=== PATIENT | female | born 1990 | race Caucasian/White ===

== ENCOUNTER 2024-05-15 07:56 | Inpatient (IN) | payer OTHER ==
[2024-05-15] MEDS: LACTATED RINGERS SOLUTION 1000 ML INFUS.BAG IV ONE ×2 (08:44→10:02)
[2024-05-15] MEDS: morphine CARPU-JECT 2 MG/1 ML DISP.SYRIN IVPUSH ONE ×3 (08:45→13:21)
[2024-05-15] MEDS ORDERED: diazePAM CARPU-JECT 10 MG/2 ML DISP.SYRIN ONE (08:48)
[2024-05-15] MEDS ORDERED: ACETAMINOPHEN INJECTION 100 ML IVPB ONE (08:49)
[2024-05-15] MEDS ORDERED: morphine SULFATE 4 MG/ML VIAL ONE ×2 (08:49→10:03)
[2024-05-15] MEDS ORDERED: FAMOTIDINE 20 MG/50 ML IVPB 20 MG/50 ML MG IVPB ONE (08:50)
[2024-05-15] MEDS ORDERED: ONDANSETRON 4 MG/2 ML VIAL ONE (08:50)
[2024-05-15] MEDS: diazePAM CARPU-JECT 10 MG/2 ML DISP.SYRIN IVPUSH ONE (08:52)
[2024-05-15] MEDS: ONDANSETRON 4 MG/2 ML VIAL IVPUSH ONE (08:54)
[2024-05-15] MEDS: ACETAMINOPHEN 1000 MG/100 ML BAG IVPB ONE (08:55)
[2024-05-15 08:57] LABS: BASO % 0.2 % (0-2.0); HEMATOCRIT 45.6 % (32.4-45.2); HEMOGLOBIN 15.5 GM/dL (10.7-15.3); INR 0.88 (0.83-1.09); LYMPH % 13.8 % (8-40); MCH 33.8 pg (25.7-33.7); MEAN CELL VOLUME 99.3 fl (80-96); MEAN PLT VOLUME 8.2 fl (7.5-11.1); MONO % 6.3 % (3.8-10.2); NEUT % 79.7 % (42.8-82.8); PLATELET COUNT 136 10^3/uL (134-434); RBC 4.59 M/mm3 (3.60-5.2); RDW 12.6 % (11.6-15.6); WHITE BLOOD COUNT 5.7 K/mm3 (4.0-10.0)
[2024-05-15 09:00] LABS: ACTIVATED PTT 31.9 SECONDS (25.2-36.5)
[2024-05-15] MEDS: FAMOTIDINE 20 MG/50 ML IVPB 20 MG/50 ML MG IVPB ONE (09:00)
[2024-05-15 09:14] LABS: CALCIUM 10.2 mg/dL (8.5-10.1)
[2024-05-15 09:15] LABS: ALBUMIN 5.1 g/dl (3.4-5.0); BLOOD UREA NITROGEN 12.8 mg/dL (7-18); MAGNESIUM 2.5 mg/dL (1.8-2.4)
[2024-05-15 09:18] LABS: CREATININE 0.9 mg/dL (0.55-1.3); PHOSPHOROUS 1.6 mg/dL (2.5-4.9)
[2024-05-15 09:20] LABS: BILIRUBIN,TOTAL 1.4 mg/dL (0.2-1); TOT PROT 9.8 g/dl (6.4-8.2)
[2024-05-15] MEDS ORDERED: SODIUM PHOSPHATE - 0 MM in DEXTROSE 5%-WATER - 250 ML IVPB ONE (09:42)
[2024-05-15 09:48] LABS: VENOUS BASE EXCESS -6.4 mmol/L (-2-2); VENOUS O2 SATURATION 50.9 % (70-80); VENOUS PH 7.349 (7.310-7.410)
[2024-05-15 10:03] LABS: BILIRUBIN,DIRECT 0.3 mg/dL (0.0-0.2)
[2024-05-15] MEDS: morphine CARPU-JECT 4 MG/1 ML DISP.SYRIN IVPUSH ONE (10:05)
[2024-05-15] MEDS ORDERED: KETOROLAC TROMETHAMINE 15 MG/ML VIAL ONE ×2 (10:07→14:37)
[2024-05-15] MEDS: KETOROLAC TROMETHAMINE 15 MG/ML VIAL IVPUSH ONE (10:24)
[2024-05-15] MEDS: FOLIC ACID INJECTION - 1 MG, THIAMINE HCL 100 MG, MULTIVIT INJECTION ADULT 10 ML in SOD... IVPB ONE (10:24)
[2024-05-15] MEDS: FOLIC ACID 5 MG/1 ML SQ ONE (10:26)
[2024-05-15] MEDS: THIAMINE HCL 200 MG/2 ML VIAL IVPB ONE (10:26)
[2024-05-15 12:12] LABS: POTASSIUM 3.7 mmol/L (3.5-5.1)
[2024-05-15 12:14] LABS: BLOOD UREA NITROGEN 10.1 mg/dL (7-18)
[2024-05-15 12:17] LABS: CREATININE 0.6 mg/dL (0.55-1.3)
[2024-05-15 12:21] LABS: CALCIUM 8.6 mg/dL (8.5-10.1)
[2024-05-15] MEDS ORDERED: LORazepam 1 MG TABLET PO PRN (13:03)
[2024-05-15] MEDS ORDERED: ONDANSETRON 4 MG/2 ML VIAL IVPUSH PRN (13:10)
[2024-05-15] MEDS ORDERED: MORPHINE SULFATE 2 MG/ML SYRINGE ONE (13:17)
[2024-05-15] MEDS: KETOROLAC TROMETHAMINE 15 MG/ML VIAL IVPUSH PRN (14:44)
[2024-05-15] MEDS: ACETAMINOPHEN 500 MG TABLET (FP) PO PRN (17:30)
[2024-05-15] MEDS ORDERED: ACETAMINOPHEN 500 MG TABLET (FP) ONE (17:38)
[2024-05-15] MEDS: LORazepam 2 MG/ML SDV VIAL IVPUSH PRN (18:21)
[2024-05-15] MEDS: LACTATED RINGERS SOLUTION 1,000 ML/1,000 ML INFUS.BAG IV SCH (18:47)
[2024-05-15] MEDS: THIAMINE 100 MG TABLET PO SCH (21:19)
[2024-05-15] MEDS: HEPARIN NA (PORCINE) 5,000 UNITS/ML 1ML VIAL SQ SCH (21:19)
[2024-05-15] MEDS: LORazepam 1 MG TABLET PO SCH (21:19)
[2024-05-16] MEDS: SODIUM PHOSPHATE - 30 MM in DEXTROSE 5%-WATER - 500 ML IVPB ONE (07:13)
[2024-05-16 09:24] LABS: BASO % 0.4 % (0-2.0); EOS % 0.3 % (0-4.5); HEMOGLOBIN 12.4 GM/dL (10.7-15.3); LYMPH % 30.5 % (8-40); MCH 33.8 pg (25.7-33.7); MCHC 34.5 g/dl (32.0-36.0); MEAN CELL VOLUME 97.9 fl (80-96); MEAN PLT VOLUME 8.5 fl (7.5-11.1); MONO % 6.3 % (3.8-10.2); NEUT % 62.5 % (42.8-82.8); PLATELET COUNT 105 10^3/uL (134-434); RBC 3.68 M/mm3 (3.60-5.2); RDW 12.9 % (11.6-15.6); WHITE BLOOD COUNT 3.9 K/mm3 (4.0-10.0)
[2024-05-16 09:30] LABS: BILIRUBIN,DIRECT 0.3 mg/dL (0.0-0.2)
[2024-05-16 09:40] LABS: ANION GAP 9 mmol/L (4-13); BLOOD UREA NITROGEN 5.2 mg/dL (7-18); CALCIUM 8.7 mg/dL (8.5-10.1); CHLORIDE 96 mmol/L (98-107); CO2 27 mmol/L (21-32); CREATININE 0.5 mg/dL (0.55-1.3); GLUCOSE,RANDOM 125 mg/dL (74-106); POTASSIUM 2.9 mmol/L (3.5-5.1); SODIUM 132 mmol/L (136-145)
[2024-05-16 09:42] LABS: ALBUMIN 3.6 g/dl (3.4-5.0)
[2024-05-16] MEDS: POTASSIUM CHLORIDE TABS 20 MEQ TABLET.ER (FP) PO ONE (11:05)
[2024-05-16] MEDS: FAMOTIDINE 20 MG TABLET PO SCH (11:08)
[2024-05-16] MEDS: DEXTROSE 5%-WATER - 1,000 ML IV SCH (11:09)
[2024-05-16] MEDS: SODIUM CHLORIDE 0.9%/KCL 20 MEQ/1,000 ML INFUS.BAG IV SCH (14:19)
[2024-05-16] MEDS: cloNIDine HCL 0.1 MG TABLET PO ONE (17:02)
[2024-05-16] MEDS: DOCUSATE SODIUM 100 MG CAPSULE (FP) PO SCH (22:17)
[2024-05-16] MEDS: SENNOSIDES 8.6MG TABLET (FP) PO SCH (22:17)
[2024-05-17] MEDS ORDERED: POLYETHYLENE GLYCOL (HEALTHYLAX) 3350 17 GM PACKET PO PRN (08:00)
[2024-05-17 08:56] LABS: HEMATOCRIT 37.6 % (32.4-45.2); HEMOGLOBIN 12.8 GM/dL (10.7-15.3); MCH 33.5 pg (25.7-33.7); MEAN CELL VOLUME 98.7 fl (80-96); MEAN PLT VOLUME 8.5 fl (7.5-11.1); PLATELET COUNT 98 10^3/uL (134-434); RBC 3.81 M/mm3 (3.60-5.2); RDW 12.7 % (11.6-15.6); WHITE BLOOD COUNT 2.6 K/mm3 (4.0-10.0)
[2024-05-17] MEDS: LORazepam 1 MG TABLET PO SCH (09:17)
[2024-05-17 09:24] LABS: CHLORIDE 96 mmol/L (98-107); SODIUM 132 mmol/L (136-145)
[2024-05-17 09:36] LABS: ALBUMIN 3.3 g/dl (3.4-5.0); ANION GAP 7 mmol/L (4-13); CALCIUM 7.9 mg/dL (8.5-10.1); CO2 29 mmol/L (21-32); GLUCOSE,RANDOM 156 mg/dL (74-106); MAGNESIUM 1.5 mg/dL (1.8-2.4)
[2024-05-17 09:38] LABS: BILIRUBIN,DIRECT 0.2 mg/dL (0.0-0.2)
[2024-05-17 09:39] LABS: CREATININE 0.4 mg/dL (0.55-1.3); PHOSPHOROUS 2.1 mg/dL (2.5-4.9); SGOT/AST 97 U/L (15-37); SGPT/ALT 29 U/L (13-61)
[2024-05-17 09:40] LABS: BILIRUBIN,TOTAL 0.8 mg/dL (0.2-1); TOT PROT 6.5 g/dl (6.4-8.2)
[2024-05-17 09:42] LABS: ALK PHOS 68 U/L (45-117)
[2024-05-17] MEDS: POTASSIUM CHLORIDE ORAL LIQUID 20 MEQ/15 ML PO ONE (10:51)
[2024-05-17] MEDS: KCL 10 MEQ IVPB 10 MEQ/100 ML INFUS.BAG IVPB SCH (10:52)
[2024-05-17 13:30] VITALS: BP 113/92; PULSE 116; RESP 20; TEMP 97.9
[2024-05-17 13:33] VITALS: BMI 21.4
[2024-05-17 13:55] LABS: PHOSPHOROUS 2.3 mg/dL (2.5-4.9)
[2024-05-17] MEDS: MAGNESIUM 2GM/50ML STERILE WATER IVPB IVPB ONE (14:03)
[2024-05-17] MEDS: MULTIVITAMINS (DAILY MVI) TABLET (FP) PO SCH (14:54)
[2024-05-17] MEDS: FOLIC ACID 1 MG TABLET (FP) PO SCH (14:54)
[2024-05-17] MEDS: NAPH,MB-DB/K PH,MBDB POWDER PACKET PO ONE (14:55)
[2024-05-17 16:50] LABS: CHLORIDE 100 mmol/L (98-107); POTASSIUM 4.3 mmol/L (3.5-5.1); SODIUM 133 mmol/L (136-145)
[2024-05-17 16:52] LABS: ANION GAP 6 mmol/L (4-13); CO2 27 mmol/L (21-32); GLUCOSE,RANDOM 135 mg/dL (74-106); MAGNESIUM 2.5 mg/dL (1.8-2.4)
[2024-05-17 16:55] LABS: CREATININE 0.4 mg/dL (0.55-1.3)
[2024-05-17 16:58] LABS: BLOOD UREA NITROGEN 2.4 mg/dL (7-18); CALCIUM 9.2 mg/dL (8.5-10.1)
== END 2024-05-17 18:31 | disposition home or self-care (01) | DRG 282 ==
LOC: JER 07:56 → JERBED 12:28 → OBSVTOIN 12:59 → J7W 18:02
PROVIDERS: ADMIT Internal Medicine; ATTEND Internal Medicine
DX: K85.20 Alcohol induced acute pancreatitis without necrosis or infection (principal); R74.8 Abnormal levels of other serum enzymes; E83.39 Other disorders of phosphorus metabolism; E87.6 Hypokalemia; K59.00 Constipation, unspecified; E83.42 Hypomagnesemia; E87.1 Hypo-osmolality and hyponatremia
CPT/HCPCS: 36415; 71045-TC-FY; 74176-TC; 76705-TC; 80048; 80053; 80076; 82248; 82803; 83690; 83735; 84100; 84484; 84703; 85025; 85027; 85610; 85730; 93005; 93010; 99285-25; G0378; J0131; J1644

== ENCOUNTER 2024-08-25 20:29 | Inpatient (IN) | payer BC, OTHER ==
[2024-08-25] MEDS ORDERED: ONDANSETRON 4 MG/2 ML VIAL ONE (21:38)
[2024-08-25] MEDS ORDERED: ACETAMINOPHEN INJECTION 100 ML ONE (21:38)
[2024-08-25] MEDS: LACTATED RINGERS SOLUTION 1000 ML INFUS.BAG IV ONE (21:45)
[2024-08-25] MEDS: ONDANSETRON 4 MG/2 ML VIAL IVPUSH ONE (21:45)
[2024-08-25] MEDS: ACETAMINOPHEN 1000 MG/100 ML BAG IVPB ONE (21:45)
[2024-08-25 21:50] LABS: BASO % 0.7 % (0-2.0); EOS % 0.9 % (0-4.5); HEMATOCRIT 35.8 % (32.4-45.2); LYMPH % 36.2 % (8-40); MCH 33.5 pg (25.7-33.7); MCHC 33.6 g/dl (32.0-36.0); MEAN CELL VOLUME 99.7 fl (80-96); MEAN PLT VOLUME 7.6 fl (7.5-11.1); MONO % 8.6 % (3.8-10.2); NEUT % 53.6 % (42.8-82.8); PLATELET COUNT 465 10^3/uL (134-434); RBC 3.59 M/mm3 (3.60-5.2); RDW 14.6 % (11.6-15.6); WHITE BLOOD COUNT 5.9 K/mm3 (4.0-10.0)
[2024-08-25 21:51] LABS: PH,URINE 5.5 (5.0-8.0); URINE APPEARANCE CLEAR; URINE BILIRUBIN NEGATIVE (NEGATIVE); URINE COLOR YELLOW; URINE GLUCOSE (UA) NEGATIVE (NEGATIVE); URINE KETONE TRACE (NEGATIVE); URINE LEUK ESTERASE NEGATIVE (NEGATIVE); URINE NITRITE NEGATIVE (NEGATIVE); URINE PROTEIN NEGATIVE (NEGATIVE); URINE UROBILINOGEN 0.2 mg/dL (0.2-1.0)
[2024-08-25 22:16] LABS: POTASSIUM 3.9 mmol/L (3.5-5.1)
[2024-08-25 22:18] LABS: ALBUMIN 4.3 g/dl (3.4-5.0); CALCIUM 9.4 mg/dL (8.5-10.1)
[2024-08-25 22:19] LABS: BLOOD UREA NITROGEN 5.5 mg/dL (7-18)
[2024-08-25 22:21] LABS: CREATININE 0.7 mg/dL (0.55-1.3)
[2024-08-25 22:23] LABS: BILIRUBIN,TOTAL 0.3 mg/dL (0.2-1); TOT PROT 7.8 g/dl (6.4-8.2)
[2024-08-25] MEDS: SODIUM CHLORIDE 1,000 ML IV STA (22:52)
[2024-08-25] MEDS ORDERED: MORPHINE SULFATE 2 MG/ML SYRINGE ONE (23:16)
[2024-08-25] MEDS: morphine SULFATE 4 MG/ML VIAL IVPUSH ONE (23:20)
[2024-08-26 01:20] VITALS: BMI 20.3
[2024-08-26] MEDS ORDERED: ACETAMINOPHEN 1000 MG/100 ML BAG IVPB PRN (01:45)
[2024-08-26] MEDS: LACTATED RINGERS SOLUTION 1,000 ML/1,000 ML INFUS.BAG IV SCH ×2 (02:45→10:55)
[2024-08-26 08:32] LABS: HEMATOCRIT 31.4 % (32.4-45.2); HEMOGLOBIN 10.7 GM/dL (10.7-15.3); MCH 34.3 pg (25.7-33.7); MCHC 34.2 g/dl (32.0-36.0); MEAN CELL VOLUME 100.4 fl (80-96); PLATELET COUNT 369 10^3/uL (134-434); RBC 3.12 M/mm3 (3.60-5.2); RDW 14.6 % (11.6-15.6); WHITE BLOOD COUNT 4.2 K/mm3 (4.0-10.0)
[2024-08-26 09:04] LABS: POTASSIUM 3.9 mmol/L (3.5-5.1)
[2024-08-26 09:12] LABS: BLOOD UREA NITROGEN 3.9 mg/dL (7-18); CALCIUM 8.7 mg/dL (8.5-10.1); CREATININE 0.6 mg/dL (0.55-1.3); TOT PROT 5.8 g/dl (6.4-8.2)
[2024-08-26 09:15] LABS: PHOSPHOROUS 4.3 mg/dL (2.5-4.9)
[2024-08-26 09:17] LABS: ALBUMIN 3.2 g/dl (3.4-5.0); BILIRUBIN,TOTAL 0.3 mg/dL (0.2-1)
[2024-08-26] MEDS: THIAMINE 100 MG TABLET PO SCH (10:50)
[2024-08-26] MEDS: FOLIC ACID 1 MG TABLET (FP) PO SCH (10:50)
[2024-08-26] MEDS: MULTIVITAMINS (DAILY MVI) TABLET (FP) PO SCH (10:50)
[2024-08-26] MEDS: FLU VACCINE (FLULAVAL) PF 45 MCG/0.5 ML SYRINGE 2024-2025 IM ONE (10:54)
[2024-08-26] MEDS: ENOXAPARIN NA (PORCINE) 40 MG/0.4 ML DISP.SYRIN SQ SCH (10:55)
[2024-08-26] MEDS: ESCITALOPRAM OXALATE 10 MG TABLET PO SCH (14:07)
[2024-08-26] MEDS ORDERED: HYDROmorphone HCl 2 MG/ML VIAL IVPB PRN (15:46)
[2024-08-26 15:49] LABS: COCAINE, UR NEGATIVE (NEGATIVE); METHADONE, UR NEGATIVE (NEGATIVE); URINE AMPHETAMINES NEGATIVE (NEGATIVE)
[2024-08-26 15:51] LABS: PHENCYCLIDINE,URINE NEGATIVE (NEGATIVE)
[2024-08-26 15:56] LABS: OPIATES, URI POSITIVE (NEGATIVE); URINE BARBITURATES NEGATIVE (NEGATIVE); URINE BENZODIAZEPINES POSITIVE (NEGATIVE)
[2024-08-26] MEDS: PANTOPRAZOLE SODIUM 40 MG VIAL IVPUSH SCH (17:57)
[2024-08-26] MEDS: KETOROLAC TROMETHAMINE 15 MG/ML VIAL IVPUSH ONE (23:06)
[2024-08-27 09:23] LABS: HEMATOCRIT 34.7 % (32.4-45.2); HEMOGLOBIN 11.4 GM/dL (10.7-15.3); MCH 33.6 pg (25.7-33.7); MEAN CELL VOLUME 101.9 fl (80-96); MEAN PLT VOLUME 7.8 fl (7.5-11.1); PLATELET COUNT 441 10^3/uL (134-434); RDW 14.4 % (11.6-15.6); WHITE BLOOD COUNT 4.7 K/mm3 (4.0-10.0)
[2024-08-27 09:27] LABS: INR 0.98 (0.83-1.09); PROTHROMBIN TIME (PATIENT) 11.1 SEC (9.7-13.0)
[2024-08-27 12:41] LABS: POTASSIUM 3.9 mmol/L (3.5-5.1)
[2024-08-27 12:50] LABS: CALCIUM 9.2 mg/dL (8.5-10.1)
[2024-08-27 12:52] LABS: ALBUMIN 3.5 g/dl (3.4-5.0)
[2024-08-27 12:54] LABS: CREATININE 0.5 mg/dL (0.55-1.3)
[2024-08-27 12:55] LABS: BILIRUBIN,TOTAL 0.3 mg/dL (0.2-1)
[2024-08-27 12:56] LABS: TOT PROT 6.5 g/dl (6.4-8.2)
[2024-08-27] MEDS: KETOROLAC TROMETHAMINE 15 MG/ML VIAL IVPUSH ONE (18:20)
[2024-08-28 04:08] VITALS: RESP 18
[2024-08-28 08:19] VITALS: BP 92/69; PULSE 58; TEMP 97.7
[2024-08-28 08:53] LABS: HEMATOCRIT 32.7 % (32.4-45.2); HEMOGLOBIN 11.3 GM/dL (10.7-15.3); MCH 34.7 pg (25.7-33.7); MCHC 34.6 g/dl (32.0-36.0); MEAN CELL VOLUME 100.2 fl (80-96); MEAN PLT VOLUME 8.1 fl (7.5-11.1); PLATELET COUNT 386 10^3/uL (134-434); RBC 3.27 M/mm3 (3.60-5.2); RDW 14.8 % (11.6-15.6); WHITE BLOOD COUNT 3.9 K/mm3 (4.0-10.0)
[2024-08-28 09:51] LABS: POTASSIUM 3.9 mmol/L (3.5-5.1)
[2024-08-28 10:00] LABS: ALBUMIN 3.1 g/dl (3.4-5.0); BLOOD UREA NITROGEN 3.1 mg/dL (7-18); MAGNESIUM 1.9 mg/dL (1.8-2.4)
[2024-08-28 10:03] LABS: CREATININE 0.5 mg/dL (0.55-1.3)
[2024-08-28 10:04] LABS: BILIRUBIN,TOTAL 0.3 mg/dL (0.2-1); TOT PROT 5.8 g/dl (6.4-8.2)
[2024-08-28] MEDS ORDERED: KETOROLAC TROMETHAMINE 15 MG/ML VIAL IVPUSH PRN (10:28)
== END 2024-08-28 13:29 | disposition home or self-care (01) | DRG 440 ==
LOC: JER 20:29 → JERBED 22:43 → J8W 08-26 00:38
PROVIDERS: ADMIT Internal Medicine; ATTEND Nurse Practitioner Family
DX: K85.20 Alcohol induced acute pancreatitis without necrosis or infection (principal); K86.0 Alcohol-induced chronic pancreatitis; F10.20 Alcohol dependence, uncomplicated
CPT/HCPCS: 36415; 74170-TC; 80053; 80061; 80307; 81003; 82607; 82746; 82787; 83690; 83735; 84100; 84703; 85025; 85027; 85610; 86704; 86708; 86803; 87086; 87340; 87517; 93005; 93010; 99285-25; J0131; Q9967

== ENCOUNTER 2024-09-12 19:08 | Inpatient (IN) | payer BC ==
[2024-09-12 19:25] VITALS: BMI 18.8
[2024-09-12 20:22] LABS: BASO % 2.4 % (0-2.0); EOS % 0.7 % (0-4.5); HEMOGLOBIN 12.4 GM/dL (10.7-15.3); LYMPH % 58.9 % (8-40); MCH 32.4 pg (25.7-33.7); MCHC 33.6 g/dl (32.0-36.0); MEAN CELL VOLUME 96.3 fl (80-96); MEAN PLT VOLUME 8.8 fl (7.5-11.1); MONO % 5.4 % (3.8-10.2); NEUT % 32.6 % (42.8-82.8); PLATELET COUNT 104 10^3/uL (134-434); RBC 3.84 M/mm3 (3.60-5.2); RDW 13.5 % (11.6-15.6); WHITE BLOOD COUNT 3.3 K/mm3 (4.0-10.0)
[2024-09-12 20:41] LABS: POTASSIUM 3.4 mmol/L (3.5-5.1)
[2024-09-12 20:43] LABS: ALBUMIN 4.1 g/dl (3.4-5.0); BLOOD UREA NITROGEN 3.1 mg/dL (7-18); CALCIUM 8.3 mg/dL (8.5-10.1); MAGNESIUM 1.9 mg/dL (1.8-2.4)
[2024-09-12 20:46] LABS: CREATININE 0.5 mg/dL (0.55-1.3)
[2024-09-12 20:48] LABS: BILIRUBIN,TOTAL 0.6 mg/dL (0.2-1); TOT PROT 7.6 g/dl (6.4-8.2)
[2024-09-12] MEDS ORDERED: chlordiazePOXIDE HCL 25 MG CAPSULE ONE (21:06)
[2024-09-12] MEDS: chlordiazePOXIDE HCL 25 MG CAPSULE PO ONE (21:10)
[2024-09-12 21:49] LABS: LACTIC ACID 3.2 mmol/L (0.4-2.0)
[2024-09-12] MEDS: SODIUM CHLORIDE 0.9% 500 ML INFUS.BAG IV ONE (22:32)
[2024-09-13 00:21] LABS: LACTIC ACID 3.9 mmol/L (0.4-2.0)
[2024-09-13] MEDS: levETIRAcetam 500 MG/5 ML INJECTION VIAL IVPB ONE (01:04)
[2024-09-13] MEDS ORDERED: POTASSIUM CHLORIDE ORAL LIQUID 20 MEQ/15 ML PO ONE (03:41)
[2024-09-13] MEDS ORDERED: MAGNESIUM SULFATE IN WATER 2 GM/50 ML IVPB IVPB ONE (03:43)
[2024-09-13] MEDS ORDERED: POTASSIUM CHLORIDE ORAL LIQUID 20 MEQ/15 ML ONE (03:43)
[2024-09-13] MEDS: POTASSIUM CHLORIDE TABS 20 MEQ TABLET.ER (FP) PO ONE (03:54)
[2024-09-13] MEDS: MAGNESIUM SULF 50% (8.12 MEQ/2 ML-1 GM VIAL) IVPB ONE (03:54)
[2024-09-13] MEDS: FOLIC ACID INJECTION - 1 MG, THIAMINE HCL 100 MG, MULTIVIT INJECTION ADULT 10 ML in SOD... IVPB ONE (06:13)
[2024-09-13 07:28] LABS: HEMATOCRIT 33.8 % (32.4-45.2); HEMOGLOBIN 11.3 GM/dL (10.7-15.3); MCH 32.8 pg (25.7-33.7); MCHC 33.5 g/dl (32.0-36.0); MEAN PLT VOLUME 8.5 fl (7.5-11.1); PLATELET COUNT 82 10^3/uL (134-434); RBC 3.45 M/mm3 (3.60-5.2); RDW 13.6 % (11.6-15.6); WHITE BLOOD COUNT 2.4 K/mm3 (4.0-10.0)
[2024-09-13 07:34] LABS: POTASSIUM 4.1 mmol/L (3.5-5.1)
[2024-09-13 07:36] LABS: CALCIUM 8.3 mg/dL (8.5-10.1)
[2024-09-13 07:37] LABS: ALBUMIN 3.3 g/dl (3.4-5.0); BLOOD UREA NITROGEN 3.5 mg/dL (7-18); MAGNESIUM 2.4 mg/dL (1.8-2.4)
[2024-09-13 07:40] LABS: CREATININE 0.5 mg/dL (0.55-1.3)
[2024-09-13 07:41] LABS: BILIRUBIN,TOTAL 0.7 mg/dL (0.2-1); TOT PROT 6.3 g/dl (6.4-8.2)
[2024-09-13] MEDS: ENOXAPARIN NA (PORCINE) 40 MG/0.4 ML DISP.SYRIN SQ SCH (10:56)
[2024-09-13] MEDS: levETIRAcetam 500 MG/5 ML INJECTION VIAL IVPB SCH (10:56)
[2024-09-13 16:33] VITALS: BP 115/86; PULSE 79; RESP 15; TEMP 98.5
[2024-09-13] MEDS ORDERED: LORazepam 1 MG TABLET PO PRN (19:50)
[2024-09-13] MEDS ORDERED: DICYCLOMINE HCL 10 MG CAPSULE PO PRN (19:52)
[2024-09-13] MEDS ORDERED: hydrOXYzine PAMOATE 25 MG CAPSULE (FP) PO PRN (19:52)
[2024-09-13] MEDS ORDERED: LORazepam 1 MG TABLET ONE (20:14)
[2024-09-13] MEDS: LORazepam 1 MG TABLET PO SCH (20:22)
[2024-09-13] MEDS ORDERED: THIAMINE HCL 200 MG/2 ML VIAL IVPB SCH (21:30)
[2024-09-13] MEDS ORDERED: MELATONIN 5 MG TABLETS PO SCH (22:00)
[2024-09-14] MEDS ORDERED: THIAMINE HCL 200 MG/2 ML VIAL IVPB SCH (10:00)
[2024-09-14] MEDS ORDERED: FOLIC ACID 1 MG TABLET (FP) PO SCH (10:00)
[2024-09-15] MEDS ORDERED: LORazepam 1 MG TABLET PO SCH (05:00)
[2024-09-16] MEDS ORDERED: LORazepam 0.5 MG TABLET PO PRN
[2024-09-16] MEDS ORDERED: LORazepam 0.5 MG TABLET PO SCH (05:00)
[2024-09-17] MEDS ORDERED: LORazepam 0.5 MG TABLET PO ONE (05:00)
== END 2024-09-13 21:21 | disposition left against medical advice (07) | DRG 894 ==
LOC: JER 19:08 → JERBED 09-13 00:37
PROVIDERS: ADMIT Internal Medicine; ATTEND Internal Medicine
DX: F10.139 Alcohol abuse with withdrawal, unspecified (principal); F50.20 Bulimia nervosa, unspecified; Z68.1 Body mass index [BMI] 19.9 or less, adult; E87.1 Hypo-osmolality and hyponatremia; E87.20 Acidosis, unspecified; F32.9 Major depressive disorder, single episode, unspecified; E87.6 Hypokalemia; E83.51 Hypocalcemia; R00.0 Tachycardia, unspecified; I95.9 Hypotension, unspecified; R59.1 Generalized enlarged lymph nodes; Z88.1 Allergy status to other antibiotic agents
CPT/HCPCS: 36415; 70450-TC; 70551-TC; 80053; 80307; 83605; 83735; 84100; 84703; 85025; 85027; 93005; 93010; 95816; 99285-25

== ENCOUNTER 2024-11-30 21:00 | Inpatient (IN) | payer BC, OTHER ==
[2024-11-30 21:05] VITALS: BMI 18.3
[2024-11-30] MEDS ORDERED: ACETAMINOPHEN INJECTION 100 ML ONE (22:11)
[2024-11-30] MEDS ORDERED: FAMOTIDINE 20 MG/50 ML IVPB 20 MG/50 ML MG IVPB ONE (22:11)
[2024-11-30] MEDS ORDERED: ONDANSETRON 4 MG/2 ML VIAL ONE (22:11)
[2024-11-30 22:30] LABS: BASO % 0.7 % (0-2.0); EOS % 0.1 % (0-4.5); HEMATOCRIT 36.7 % (32.4-45.2); HEMOGLOBIN 12.7 GM/dL (10.7-15.3); LYMPH % 19.3 % (8-40); MCHC 34.6 g/dl (32.0-36.0); MEAN CELL VOLUME 95.4 fl (80-96); MEAN PLT VOLUME 8.3 fl (7.5-11.1); MONO % 5.7 % (3.8-10.2); NEUT % 74.2 % (42.8-82.8); PLATELET COUNT 70 10^3/uL (134-434); RBC 3.85 M/mm3 (3.60-5.2); RDW 15.8 % (11.6-15.6); WHITE BLOOD COUNT 7.3 K/mm3 (4.0-10.0)
[2024-11-30] MEDS: SODIUM CHLORIDE 0.9% 500 ML INFUS.BAG IV ONE (22:33)
[2024-11-30] MEDS: ONDANSETRON 4 MG/2 ML VIAL IVPUSH ONE (22:33)
[2024-11-30] MEDS: ACETAMINOPHEN 1000 MG/100 ML BAG IVPB ONE (22:34)
[2024-11-30 22:40] LABS: HCG,QUALITATIVE URINE Negative
[2024-11-30] MEDS: FAMOTIDINE 20 MG/50 ML IVPB 20 MG/50 ML MG IVPB ONE (22:55)
[2024-11-30 22:57] LABS: URINE APPEARANCE CLEAR; URINE BILIRUBIN NEGATIVE (NEGATIVE); URINE COLOR YELLOW; URINE GLUCOSE (UA) NEGATIVE (NEGATIVE); URINE KETONE TRACE (NEGATIVE); URINE LEUK ESTERASE NEGATIVE (NEGATIVE); URINE NITRITE NEGATIVE (NEGATIVE); URINE PROTEIN NEGATIVE (NEGATIVE); URINE UROBILINOGEN 0.2 mg/dL (0.2-1.0)
[2024-11-30 22:58] LABS: POTASSIUM 3.4 mmol/L (3.5-5.1)
[2024-11-30 23:01] LABS: BLOOD UREA NITROGEN 3.3 mg/dL (7-18); CALCIUM 8.3 mg/dL (8.5-10.1); EPI CELLS 14.5 /uL (0-25.1); URINE BACTERIA 213.5 /uL (0-1359); URINE RBC 30.8 /uL (0-23.9); URINE WBC 2.8 /uL (0-25.8)
[2024-11-30 23:04] LABS: CREATININE 0.5 mg/dL (0.55-1.3)
[2024-11-30 23:05] LABS: BILIRUBIN,TOTAL 0.7 mg/dL (0.2-1)
[2024-11-30 23:06] LABS: TOT PROT 7.4 g/dl (6.4-8.2)
[2024-12-01] MEDS ORDERED: diazePAM CARPU-JECT 10 MG/2 ML DISP.SYRIN ONE ×2 (00:13→01:36)
[2024-12-01] MEDS ORDERED: MORPHINE SULFATE 2 MG/ML SYRINGE ONE ×2 (00:13→01:37)
[2024-12-01] MEDS: diazePAM CARPU-JECT 10 MG/2 ML DISP.SYRIN IVPUSH ONE ×2 (00:20→01:43)
[2024-12-01] MEDS: morphine CARPU-JECT 4 MG/1 ML DISP.SYRIN IVPUSH ONE (00:22)
[2024-12-01] MEDS ORDERED: chlordiazePOXIDE HCL 25 MG CAPSULE PO PRN (01:13)
[2024-12-01] MEDS: morphine CARPU-JECT 4 MG/1 ML DISP.SYRIN IVPUSH SCH (01:43)
[2024-12-01] MEDS: SODIUM CHLORIDE 1,000 ML IV SCH (02:45)
[2024-12-01] MEDS ORDERED: MORPHINE SULFATE 2 MG/ML SYRINGE IVPUSH PRN (03:37)
[2024-12-01] MEDS: LORazepam 2 MG/ML SDV VIAL IVPUSH PRN (04:05)
[2024-12-01] MEDS: ONDANSETRON 4 MG/2 ML VIAL IVPUSH PRN (04:07)
[2024-12-01] MEDS ORDERED: HYDROCORTISONE 1% TOPICAL OINT 30 GM TUBE TP PRN (04:55)
[2024-12-01] MEDS: chlordiazePOXIDE HCL 25 MG CAPSULE PO SCH (06:17)
[2024-12-01] MEDS: LIPASE/PROTEASE/AMYLASE 36,000 UNIT CAPSULE PO SCH (08:53)
[2024-12-01] MEDS: ENOXAPARIN NA (PORCINE) 40 MG/0.4 ML DISP.SYRIN SQ SCH (09:02)
[2024-12-01] MEDS: MULTIVITAMINS (DAILY MVI) TABLET (FP) PO SCH (09:02)
[2024-12-01] MEDS: MINERAL OIL/PET HY-PHL TOPICAL OINTMENT 454 GM JAR TP SCH (09:02)
[2024-12-01] MEDS: FOLIC ACID 1 MG TABLET (FP) PO SCH (09:02)
[2024-12-01] MEDS: BETAMETHASONE DIPR 0.05% OINTMENT 15 GM TUBE TP SCH (09:02)
[2024-12-01 10:45] LABS: BASO % 0.4 % (0-2.0); HEMATOCRIT 30.7 % (32.4-45.2); HEMOGLOBIN 10.2 GM/dL (10.7-15.3); LYMPH % 6.3 % (8-40); MCH 32.9 pg (25.7-33.7); MCHC 33.2 g/dl (32.0-36.0); MEAN CELL VOLUME 99.1 fl (80-96); MEAN PLT VOLUME 8.8 fl (7.5-11.1); MONO % 4.1 % (3.8-10.2); NEUT % 89.2 % (42.8-82.8); PLATELET COUNT 57 10^3/uL (134-434); RDW 15.7 % (11.6-15.6); WHITE BLOOD COUNT 7.2 K/mm3 (4.0-10.0)
[2024-12-01] MEDS: LACTATED RINGERS SOLUTION 1,000 ML/1,000 ML INFUS.BAG IV STA (11:27)
[2024-12-01] MEDS: PANTOPRAZOLE SODIUM 40 MG VIAL IVPUSH SCH (11:27)
[2024-12-01 11:30] LABS: CALCIUM 7.7 mg/dL (8.5-10.1)
[2024-12-01 11:31] LABS: ALBUMIN 3.4 g/dl (3.4-5.0); MAGNESIUM 1.7 mg/dL (1.8-2.4)
[2024-12-01 11:34] LABS: CREATININE 0.5 mg/dL (0.55-1.3); PHOSPHOROUS 3.8 mg/dL (2.5-4.9)
[2024-12-01 11:35] LABS: BILIRUBIN,TOTAL 1.1 mg/dL (0.2-1); TOT PROT 6.5 g/dl (6.4-8.2)
[2024-12-01] MEDS: chlordiazePOXIDE HCL 25 MG CAPSULE PO ONE (12:36)
[2024-12-01] MEDS ORDERED: LACTATED RINGERS SOLUTION 1,000 ML/1,000 ML INFUS.BAG IV SCH (13:00)
[2024-12-01] MEDS: LACTATED RINGERS SOLUTION 1,000 ML/1,000 ML INFUS.BAG IV SCH (13:03)
[2024-12-01] MEDS: MAGNESIUM 2GM/50ML STERILE WATER IVPB IVPB ONE (14:51)
[2024-12-01] MEDS ORDERED: ACETAMINOPHEN 1000 MG/100 ML BAG IVPB PRN (15:20)
[2024-12-01] MEDS: HYDROmorphone HCL CARPU-JECT 2 MG/1 ML DISP.SYRIN IVPB ONE (16:04)
[2024-12-01] MEDS ORDERED: METOCLOPRAMIDE HCL INJECTION 10 MG/2 ML VIAL IVPUSH PRN (18:14)
[2024-12-01] MEDS: HYDROmorphone HCL CARPU-JECT 2 MG/1 ML DISP.SYRIN IVPB PRN (19:56)
[2024-12-01] MEDS: THIAMINE 100 MG TABLET PO SCH (23:00)
[2024-12-02] MEDS: LORazepam 1 MG TABLET PO SCH ×2 (00:10→05:13)
[2024-12-02] MEDS ORDERED: chlordiazePOXIDE HCL 25 MG CAPSULE PO SCH (05:00)
[2024-12-02] MEDS: LORazepam 1 MG TABLET PO PRN (09:15)
[2024-12-02 09:26] LABS: BASO % 0.3 % (0-2.0); HEMATOCRIT 32.8 % (32.4-45.2); HEMOGLOBIN 10.9 GM/dL (10.7-15.3); LYMPH % 5.8 % (8-40); MCH 32.8 pg (25.7-33.7); MCHC 33.3 g/dl (32.0-36.0); MEAN CELL VOLUME 98.6 fl (80-96); MEAN PLT VOLUME 8.6 fl (7.5-11.1); MONO % 3.6 % (3.8-10.2); NEUT % 90.3 % (42.8-82.8); PLATELET COUNT 58 10^3/uL (134-434); RBC 3.33 M/mm3 (3.60-5.2); RDW 15.7 % (11.6-15.6); WHITE BLOOD COUNT 6.7 K/mm3 (4.0-10.0)
[2024-12-02 09:30] LABS: INR 0.94 (0.83-1.09); PROTHROMBIN TIME (PATIENT) 10.6 SEC (9.7-13.0)
[2024-12-02 09:48] LABS: CHLORIDE 102 mmol/L (98-107); POTASSIUM 3.2 mmol/L (3.5-5.1); SODIUM 133 mmol/L (136-145)
[2024-12-02 09:52] LABS: ANION GAP 12 mmol/L (4-13); CO2 19 mmol/L (21-32); GLUCOSE,RANDOM 113 mg/dL (74-106)
[2024-12-02 09:54] LABS: ALBUMIN 2.7 g/dl (3.4-5.0); BLOOD UREA NITROGEN 1.3 mg/dL (7-18)
[2024-12-02 09:56] LABS: CREATININE 0.5 mg/dL (0.55-1.3); SGOT/AST 35 U/L (15-37); SGPT/ALT 7 U/L (13-61)
[2024-12-02 09:57] LABS: BILIRUBIN,TOTAL 0.8 mg/dL (0.2-1); TOT PROT 5.7 g/dl (6.4-8.2)
[2024-12-02 09:58] LABS: ALK PHOS 67 U/L (45-117)
[2024-12-02] MEDS: POTASSIUM CHLORIDE ORAL LIQUID 20 MEQ/15 ML PO ONE ×2 (12:49→15:37)
[2024-12-02] MEDS: MAGNESIUM SULF 50% (8.12 MEQ/2 ML-1 GM VIAL) IVPB ONE (12:49)
[2024-12-02] MEDS: FLUTICASONE PROP 0.05% 16 GM NASAL SPRAY NS SCH (16:29)
[2024-12-02 19:48] LABS: BASO % 0.1 % (0-2.0); HEMATOCRIT 31.9 % (32.4-45.2); HEMOGLOBIN 10.9 GM/dL (10.7-15.3); LYMPH % 9.2 % (8-40); MCH 33.3 pg (25.7-33.7); MCHC 34.1 g/dl (32.0-36.0); MEAN CELL VOLUME 97.6 fl (80-96); MEAN PLT VOLUME 8.2 fl (7.5-11.1); MONO % 4.8 % (3.8-10.2); NEUT % 85.9 % (42.8-82.8); PLATELET COUNT 53 10^3/uL (134-434); RBC 3.26 M/mm3 (3.60-5.2); RDW 16.1 % (11.6-15.6); WHITE BLOOD COUNT 3.3 K/mm3 (4.0-10.0)
[2024-12-02] MEDS: INDOMETHACIN 50 MG RECTAL SUPPOSITORY PR ONE (20:04)
[2024-12-02 20:16] LABS: CALCIUM 7.8 mg/dL (8.5-10.1); CHLORIDE 103 mmol/L (98-107); SODIUM 133 mmol/L (136-145)
[2024-12-02 20:17] LABS: ALBUMIN 2.7 g/dl (3.4-5.0); BLOOD UREA NITROGEN < 1.0 mg/dL (7-18); CO2 23 mmol/L (21-32); GLUCOSE,RANDOM 277 mg/dL (74-106)
[2024-12-02 20:20] LABS: CREATININE 0.6 mg/dL (0.55-1.3); SGOT/AST 29 U/L (15-37); SGPT/ALT < 6 U/L (13-61)
[2024-12-02 20:21] LABS: BILIRUBIN,TOTAL 0.3 mg/dL (0.2-1); TOT PROT 5.8 g/dl (6.4-8.2)
[2024-12-02 20:23] LABS: ALK PHOS 64 U/L (45-117)
[2024-12-02 20:29] LABS: ANION GAP 7 mmol/L (4-13); POTASSIUM 3.5 mmol/L (3.5-5.1)
[2024-12-03] MEDS ORDERED: chlordiazePOXIDE HCL 10 MG CAPSULE PO PRN
[2024-12-03] MEDS ORDERED: chlordiazePOXIDE HCL 10 MG CAPSULE PO SCH (05:00)
[2024-12-03] MEDS: LORazepam 0.5 MG TABLET PO SCH (07:41)
[2024-12-03 10:27] LABS: HEMATOCRIT 31.1 % (32.4-45.2); HEMOGLOBIN 10.3 GM/dL (10.7-15.3); MCH 32.4 pg (25.7-33.7); MEAN CELL VOLUME 98.3 fl (80-96); MEAN PLT VOLUME 8.5 fl (7.5-11.1); PLATELET COUNT 62 10^3/uL (134-434); RBC 3.16 M/mm3 (3.60-5.2); RDW 15.5 % (11.6-15.6); WHITE BLOOD COUNT 2.1 K/mm3 (4.0-10.0)
[2024-12-03 11:05] LABS: CHLORIDE 104 mmol/L (98-107); POTASSIUM 3.3 mmol/L (3.5-5.1); SODIUM 135 mmol/L (136-145)
[2024-12-03 11:16] LABS: ALBUMIN 2.7 g/dl (3.4-5.0); ANION GAP 5 mmol/L (4-13); BLOOD UREA NITROGEN < 1.0 mg/dL (7-18); CO2 26 mmol/L (21-32); GLUCOSE,RANDOM 171 mg/dL (74-106); MAGNESIUM 1.6 mg/dL (1.8-2.4)
[2024-12-03 11:19] LABS: CREATININE 0.4 mg/dL (0.55-1.3); SGPT/ALT 7 U/L (13-61)
[2024-12-03 11:20] LABS: BILIRUBIN,TOTAL 0.3 mg/dL (0.2-1)
[2024-12-03 11:21] LABS: TOT PROT 5.8 g/dl (6.4-8.2)
[2024-12-03 11:22] LABS: ALK PHOS 58 U/L (45-117)
[2024-12-03 11:29] LABS: SGOT/AST 27 U/L (15-37)
[2024-12-03] MEDS: HYDROmorphone HCL CARPU-JECT 2 MG/1 ML DISP.SYRIN IVPUSH ONE (12:04)
[2024-12-03] MEDS: LACTATED RINGERS SOLUTION 1,000 ML/1,000 ML INFUS.BAG IV SCH (12:04)
[2024-12-03] MEDS: MAGNESIUM 1GM/D5W - 1 GM/100 ML IVPB IVPB ONE (12:05)
[2024-12-03] MEDS ORDERED: oxyCODONE HCL 5 MG TABLET PO PRN (15:05)
[2024-12-03] MEDS: oxyCODONE HCL 5 MG TABLET PO PRN (15:28)
[2024-12-03] MEDS: HYDROmorphone HCL CARPU-JECT 2 MG/1 ML DISP.SYRIN IVPB PRN (17:43)
[2024-12-03] MEDS: traZODone HCL 50 MG TABLET (FP) PO PRN (21:35)
[2024-12-04] MEDS ORDERED: chlordiazePOXIDE HCL 10 MG CAPSULE PO SCH (05:00)
[2024-12-04] MEDS: LORazepam 0.5 MG TABLET PO ONE (05:51)
[2024-12-04 09:31] LABS: HEMATOCRIT 28.7 % (32.4-45.2); HEMOGLOBIN 9.6 GM/dL (10.7-15.3); MCH 32.9 pg (25.7-33.7); MCHC 33.5 g/dl (32.0-36.0); MEAN CELL VOLUME 98.3 fl (80-96); MEAN PLT VOLUME 7.8 fl (7.5-11.1); PLATELET COUNT 71 10^3/uL (134-434); RBC 2.92 M/mm3 (3.60-5.2); RDW 16.2 % (11.6-15.6); WHITE BLOOD COUNT 2.4 K/mm3 (4.0-10.0)
[2024-12-04 09:45] LABS: CHLORIDE 104 mmol/L (98-107); POTASSIUM 3.1 mmol/L (3.5-5.1); SODIUM 138 mmol/L (136-145)
[2024-12-04 09:55] LABS: ALBUMIN 2.6 g/dl (3.4-5.0); ANION GAP 7 mmol/L (4-13); CALCIUM 7.9 mg/dL (8.5-10.1); CO2 28 mmol/L (21-32); GLUCOSE,RANDOM 131 mg/dL (74-106); MAGNESIUM 1.6 mg/dL (1.8-2.4)
[2024-12-04 09:58] LABS: BILIRUBIN,TOTAL 0.2 mg/dL (0.2-1); BLOOD UREA NITROGEN 1.1 mg/dL (7-18); CREATININE 0.4 mg/dL (0.55-1.3); SGOT/AST 41 U/L (15-37); SGPT/ALT 7 U/L (13-61); TOT PROT 5.4 g/dl (6.4-8.2)
[2024-12-04 10:00] LABS: ALK PHOS 50 U/L (45-117)
[2024-12-04] MEDS: MAGNESIUM 1GM/D5W - 1 GM/100 ML IVPB IVPB ONE ×2 (12:17→19:59)
[2024-12-04] MEDS: HYDROmorphone HCL CARPU-JECT 2 MG/1 ML DISP.SYRIN IVPB PRN (16:08)
[2024-12-04] MEDS: LORazepam 0.5 MG TABLET PO PRN (18:59)
[2024-12-04] MEDS: POTASSIUM CHLORIDE TABS 20 MEQ TABLET.ER (FP) PO ONE (19:57)
[2024-12-04] MEDS ORDERED: POTASSIUM CHLORIDE TABS 20 MEQ TABLET.ER (FP) PO SCH (22:00)
[2024-12-05] MEDS: SODIUM CHLORIDE 1,000 ML IV SCH (04:01)
[2024-12-05] MEDS ORDERED: chlordiazePOXIDE HCL 10 MG CAPSULE PO ONE (05:00)
[2024-12-05] MEDS: POTASSIUM CHLORIDE TABS 20 MEQ TABLET.ER (FP) PO SCH (09:52)
[2024-12-05] MEDS ORDERED: MIDAZOLAM HCL 2 MG/2 ML SINGLE DOSE VIAL ONE (11:05)
[2024-12-05 12:35] LABS: HEMATOCRIT 34.3 % (32.4-45.2); HEMOGLOBIN 11.5 GM/dL (10.7-15.3); MCH 32.7 pg (25.7-33.7); MCHC 33.6 g/dl (32.0-36.0); MEAN CELL VOLUME 97.2 fl (80-96); MEAN PLT VOLUME 7.2 fl (7.5-11.1); PLATELET COUNT 102 10^3/uL (134-434); RBC 3.53 M/mm3 (3.60-5.2); RDW 16.1 % (11.6-15.6); WHITE BLOOD COUNT 2.8 K/mm3 (4.0-10.0)
[2024-12-05 12:46] LABS: CHLORIDE 101 mmol/L (98-107); POTASSIUM 3.6 mmol/L (3.5-5.1); SODIUM 137 mmol/L (136-145)
[2024-12-05 12:49] LABS: ANION GAP 6 mmol/L (4-13); CALCIUM 8.8 mg/dL (8.5-10.1); CO2 29 mmol/L (21-32); GLUCOSE,RANDOM 87 mg/dL (74-106)
[2024-12-05 12:52] LABS: CREATININE 0.4 mg/dL (0.55-1.3); INR 1.04 (0.83-1.09); PROTHROMBIN TIME (PATIENT) 11.9 SEC (9.7-13.0); SGOT/AST 46 U/L (15-37); SGPT/ALT 11 U/L (13-61); TOT PROT 6.7 g/dl (6.4-8.2)
[2024-12-05 12:54] LABS: ALBUMIN 3.3 g/dl (3.4-5.0); ALK PHOS 64 U/L (45-117); BILIRUBIN,TOTAL 0.4 mg/dL (0.2-1); BLOOD UREA NITROGEN 1.2 mg/dL (7-18)
[2024-12-05] MEDS: KCL 10 MEQ IVPB 10 MEQ/100 ML INFUS.BAG IVPB SCH (12:57)
[2024-12-05 13:04] LABS: ANISOCYTOSIS 0; MACROCYTOSIS 0
[2024-12-05 13:26] LABS: MAGNESIUM 1.8 mg/dL (1.8-2.4)
[2024-12-05] MEDS: DEXTROSE 5%-NORMAL SALINE 1,000 ML IV SCH (14:57)
[2024-12-05] MEDS: MAGNESIUM SULFATE IN WATER 2 GM/50 ML IVPB IVPB ONE (15:06)
[2024-12-05] MEDS ORDERED: SUGAMMADEX SODIUM 200 MG/2 ML VIAL ONE (15:11)
[2024-12-05] MEDS: LORazepam 0.5 MG TABLET PO ONE (19:27)
[2024-12-06 09:27] LABS: BASO % 0.3 % (0-2.0); EOS % 2.3 % (0-4.5); HEMATOCRIT 34.1 % (32.4-45.2); HEMOGLOBIN 11.5 GM/dL (10.7-15.3); MCHC 33.8 g/dl (32.0-36.0); MEAN CELL VOLUME 97.5 fl (80-96); MEAN PLT VOLUME 7.7 fl (7.5-11.1); MONO % 18.3 % (3.8-10.2); NEUT % 29.1 % (42.8-82.8); PLATELET COUNT 157 10^3/uL (134-434); RDW 15.6 % (11.6-15.6); WHITE BLOOD COUNT 2.4 K/mm3 (4.0-10.0)
[2024-12-06 09:33] LABS: INR 1.07 (0.83-1.09); PROTHROMBIN TIME (PATIENT) 12.1 SEC (9.7-13.0)
[2024-12-06 10:02] LABS: CHLORIDE 106 mmol/L (98-107); POTASSIUM 3.5 mmol/L (3.5-5.1); SODIUM 141 mmol/L (136-145)
[2024-12-06 10:03] LABS: CALCIUM 8.6 mg/dL (8.5-10.1)
[2024-12-06 10:04] LABS: ALBUMIN 3.2 g/dl (3.4-5.0); ANION GAP 5 mmol/L (4-13); CO2 30 mmol/L (21-32); GLUCOSE,RANDOM 144 mg/dL (74-106); MAGNESIUM 1.9 mg/dL (1.8-2.4)
[2024-12-06 10:07] LABS: CREATININE 0.4 mg/dL (0.55-1.3); SGOT/AST 48 U/L (15-37); SGPT/ALT 10 U/L (13-61)
[2024-12-06 10:08] LABS: BLOOD UREA NITROGEN 1.6 mg/dL (7-18)
[2024-12-06 10:09] LABS: BILIRUBIN,TOTAL 0.3 mg/dL (0.2-1); TOT PROT 6.6 g/dl (6.4-8.2)
[2024-12-06 10:10] LABS: ALK PHOS 63 U/L (45-117)
[2024-12-06] MEDS ORDERED: INDOMETHACIN 50 MG RECTAL SUPPOSITORY PR ONE (11:30)
[2024-12-06] MEDS ORDERED: MIDAZOLAM HCL 2 MG/2 ML SINGLE DOSE VIAL ONE (11:30)
[2024-12-06] MEDS: HYDROmorphone HCL CARPU-JECT 2 MG/1 ML DISP.SYRIN IVPUSH PRN (17:33)
[2024-12-07] MEDS: oxyCODONE HCL 5 MG TABLET PO PRN (08:46)
[2024-12-07 09:58] LABS: BASO % 0.7 % (0-2.0); EOS % 2.5 % (0-4.5); HEMATOCRIT 33.4 % (32.4-45.2); HEMOGLOBIN 11.2 GM/dL (10.7-15.3); MCH 33.1 pg (25.7-33.7); MCHC 33.6 g/dl (32.0-36.0); MEAN CELL VOLUME 98.5 fl (80-96); MEAN PLT VOLUME 7.7 fl (7.5-11.1); MONO % 17.1 % (3.8-10.2); NEUT % 32.7 % (42.8-82.8); PLATELET COUNT 198 10^3/uL (134-434); RBC 3.39 M/mm3 (3.60-5.2); RDW 15.9 % (11.6-15.6); WHITE BLOOD COUNT 2.4 K/mm3 (4.0-10.0)
[2024-12-07 10:24] LABS: CHLORIDE 106 mmol/L (98-107); SODIUM 139 mmol/L (136-145)
[2024-12-07 10:25] LABS: CALCIUM 8.7 mg/dL (8.5-10.1)
[2024-12-07 10:26] LABS: ALBUMIN 3.1 g/dl (3.4-5.0); BLOOD UREA NITROGEN < 1.0 mg/dL (7-18); CO2 28 mmol/L (21-32); GLUCOSE,RANDOM 133 mg/dL (74-106); MAGNESIUM 1.8 mg/dL (1.8-2.4)
[2024-12-07 10:27] LABS: ANION GAP 5 mmol/L (4-13); POTASSIUM 3.7 mmol/L (3.5-5.1)
[2024-12-07 10:29] LABS: CREATININE 0.4 mg/dL (0.55-1.3); PHOSPHOROUS 3.7 mg/dL (2.5-4.9); SGOT/AST 54 U/L (15-37); SGPT/ALT 13 U/L (13-61)
[2024-12-07 10:30] LABS: BILIRUBIN,TOTAL 0.2 mg/dL (0.2-1); TOT PROT 6.2 g/dl (6.4-8.2)
[2024-12-07 10:32] LABS: ALK PHOS 61 U/L (45-117)
[2024-12-07 12:13] VITALS: BP 103/78; PULSE 72; RESP 17; TEMP 98.1
[2024-12-07] MEDS: LIPASE/PROTEASE/AMYLASE 24,000 UNIT CAPSULE PO ONE (12:29)
[2024-12-07] MEDS: BISACODYL 10 MG SUPP.RECT PR ONE (14:58)
== END 2024-12-07 18:40 | disposition home or self-care (01) | DRG 439 ==
LOC: JER 21:00 → JERBED 23:53 → J6S 12-01 03:57
PROVIDERS: ADMIT Internal Medicine; ATTEND Internal Medicine
PROC: HZ2ZZZZ Detoxification Services for Substance Abuse Treatment (ICD-10-PCS; principal; 2024-11-30)
PROC: 0FCD8ZZ Extirpation of Matter from Pancreatic Duct, Via Natural or Artificial Opening Endoscopic (ICD-10-PCS; 2024-12-06)
PROC: 0FPD8DZ Removal of Intraluminal Device from Pancreatic Duct, Via Natural or Artificial Opening Endoscopic (ICD-10-PCS; 2024-12-06)
PROC: 0F7D8DZ Dilation of Pancreatic Duct with Intraluminal Device, Via Natural or Artificial Opening Endoscopic (ICD-10-PCS; 2024-12-06)
DX: K85.20 Alcohol induced acute pancreatitis without necrosis or infection (principal); D61.818 Other pancytopenia; E87.20 Acidosis, unspecified; F10.239 Alcohol dependence with withdrawal, unspecified; F50.20 Bulimia nervosa, unspecified; Z68.1 Body mass index [BMI] 19.9 or less, adult; F41.8 Other specified anxiety disorders; K76.0 Fatty (change of) liver, not elsewhere classified; D69.6 Thrombocytopenia, unspecified; E83.42 Hypomagnesemia; K59.00 Constipation, unspecified; L30.9 Dermatitis, unspecified; R50.9 Fever, unspecified; R19.7 Diarrhea, unspecified; K83.4 Spasm of sphincter of Oddi
CPT/HCPCS: 36415; 74177-TC; 74178-TC; 74330-TC; 80053; 80307; 81003; 82150; 82962; 83605; 83690; 83735; 84100; 84703; 85025; 85027; 85610; 86850; 86900; 86901; 87040; 87086; 87324; 87449; 93005; 93010; 99285-25; J0131; Q9967